=== PATIENT | female | born 1995 | race Two or more races ===

== ENCOUNTER 2022-05-03 12:57 | Outpatient (CLI) | payer OTHER | END 2022-05-03 13:03 | disposition home or self-care (01) | LOC: RAD 12:57 | PROVIDERS: ATTEND Internal Medicine | DX: I10 Essential (primary) hypertension (principal); M54.50 Low back pain, unspecified; Z01.810 Encounter for preprocedural cardiovascular examination; E03.9 Hypothyroidism, unspecified; E78.9 Disorder of lipoprotein metabolism, unspecified; D55.9 Anemia due to enzyme disorder, unspecified; E11.51 Type 2 diabetes mellitus with diabetic peripheral angiopathy without gangrene; E11.9 Type 2 diabetes mellitus without complications; E66.8 Other obesity; G62.9 Polyneuropathy, unspecified ==

== ENCOUNTER 2022-09-14 16:35 | Outpatient (CLI) | payer OTHER | END 2022-09-14 16:52 | disposition home or self-care (01) | LOC: TOM 16:35 | PROVIDERS: ATTEND Internal Medicine | DX: I10 Essential (primary) hypertension (principal); M54.50 Low back pain, unspecified; R51.9 Headache, unspecified ==

== ENCOUNTER 2023-05-26 14:13 | Emergency (ER) | payer OTHER ==
[~2023-05-26] VITALS: Ht 157.5 cm; Wt 83.9 kg
[2023-05-26 19:02] LABS: HEMOGLOBIN 11.9 g/dL (12.0-15.00); MEAN CORPUSCULAR HEMOGLOBIN 19.4 pg (27.00-32.0); MEAN CORPUSCULAR HGB CONC 32.1 g/dl (32.0-36.0); PLATELET COUNT 304 K/uL (150-450); RED BLOOD COUNT 6.11 M/uL (4.00-6.00); RED CELL DISTRIBUTION WIDTH 16.4 % (11.5-14.5)
[2023-05-26 19:04] LABS: MEAN CELL VOLUME 60.6 fL (80.00-100.00)
[2023-05-26 19:07] LABS: URINE APPEARANCE Clear; URINE BILIRRUBIN Negative (NEGATIVE); URINE BLOOD Negative; URINE COLOR Yellow; URINE GLUCOSE Negative (NEGATIVE); URINE LEUKOCYTE Negative; URINE NITRATE Negative; URINE PROTEIN Trace (NEGATIVE)
[2023-05-26 19:11] LABS: URINE BACTERIA 148.6 uL (0.0-1933); URINE RBC 9.4 uL (0.0-20.8); URINE WBC 3.2 uL (0.0-23.2)
[2023-05-26 19:32] LABS: ANION GAP 8 (10.0-20.0); BLOOD UREA NITROGEN 10 mg/dL (7-18); BUN CREA RATIO 17 (7.0-25.0); CALCIUM 9.4 mg/dL (8.5-10.1); CARBON DIOXIDE 27 mEq/L (21-32); CHLORIDE 106 mmol/L (98-107); GFR 119.04; GLUCOSE FASTING 113 mg/dL (65-100); OSMOLALITY SERUM 274 MOSM/KG (275-295); POTASSIUM 3.74 mEq/L (3.5-5.1); SODIUM 137 mmol/L (136-145)
[2023-05-26 19:37] LABS: HCG QUANTITATIVE < 1 mUI/mL (1-3)
== END 2023-05-26 22:19 | disposition home or self-care (01) ==
LOC: ER 14:13
PROVIDERS: General Practice
DX: R10.2 Pelvic and perineal pain (principal)

== ENCOUNTER 2023-07-01 16:51 | Emergency (ER) | payer OTHER ==
[~2023-07-01] VITALS: Ht 157.5 cm; Wt 68.0 kg
[2023-07-01 17:50] LABS: HEMATOCRIT 36.3 % (36.0-45.00); HEMOGLOBIN 11.3 g/dL (12.0-15.00); MEAN CORPUSCULAR HEMOGLOBIN 19.2 pg (27.00-32.0); MEAN CORPUSCULAR HGB CONC 31.1 g/dl (32.0-36.0); PLATELET COUNT 282 K/uL (150-450); RED BLOOD COUNT 5.87 M/uL (4.00-6.00); RED CELL DISTRIBUTION WIDTH 16.1 % (11.5-14.5)
[2023-07-01 18:21] LABS: MEAN CELL VOLUME 61.7 fL (80.00-100.00)
== END 2023-07-01 19:44 | disposition home or self-care (01) ==
LOC: ER 16:52
PROVIDERS: General Practice
DX: D17.1 Benign lipomatous neoplasm of skin and subcutaneous tissue of trunk (principal)

== ENCOUNTER → 2023-09-19 | Emergency (ER) | payer OTHER ==
[~2023-09-19] VITALS: Ht 157.5 cm; Wt 74.8 kg
== END | disposition left against medical advice (07) ==
LOC: ER 20:49
DX: Z53.21 Procedure and treatment not carried out due to patient leaving prior to being seen by health care provider (principal)

== ENCOUNTER 2025-05-31 19:43 | Emergency (ER) | payer OTHER ==
[~2025-05-31] VITALS: Ht 157.5 cm; Wt 73.5 kg
[2025-05-31 20:32] VITALS: BP 143/88; O2SAT 96
[2025-05-31] MEDS ORDERED: 0.9 % SODIUM CHLORIDE 1,000 ML IV ONE (21:00)
[2025-05-31 22:07] LABS: BASO % 0.3 % (0.1-1.2); EOS # 0.12 (0.04-0.54); EOS % 1.1 % (0.7-7.0); LYMPH # 3.12 (1.18-3.74); LYMPH % 27.4 % (19.3-53.1); MEAN PLATELET VOLUME 10.10 fl (9.4-12.4); MONO # 0.61 (0.24-0.82); MONO % 5.4 % (4.7-12.5); NEUT # 7.47 (1.56-6.13); NEUT % 65.6 % (34.0-71.1); RED CELL DISTRIBUTION WIDTH 15.4 % (11.6-14.4)
[2025-05-31 22:23] LABS: ALT/SGPT 23 U/L (12-78); AST/SGOT 13 U/L (15-37); BILIRUBIN TOTAL 0.26 mg/dL (0.3-1.2); BUN CREA RATIO 20 (7.0-25.0); CREATININE SERUM 0.55 mg/dL (0.55-1.02); GFR 129.78; GLOBULINA 4.4 G/DL (2.4-3.5); GLUCOSE FASTING 106 mg/dL (65-100); OSMOLALITY SERUM 277 MOSM/KG (275-295)
[2025-05-31 22:28] LABS: HCG QUANTITATIVE < 1 mUI/mL (1-3)
[2025-06-01] MEDS ORDERED: CEFTRIAXONE SODIUM 1,000 MG VIAL IV ONE (00:45)
[2025-06-01] MEDS ORDERED: PEPCID AC20 MG PO (01:12)
[2025-06-01] MEDS ORDERED: ZITHROMAX500 MG PO (01:12)
[2025-06-01] MEDS ORDERED: MEDROLPACK PO (01:12)
[2025-06-01] MEDS ORDERED: CEFTRIAXONE SODIUM 1,000 MG VIAL ONE (01:17)
== END 2025-06-01 02:52 | disposition home or self-care (01) ==
LOC: ER 19:44
PROVIDERS: General Practice
DX: M54.2 Cervicalgia (principal); R59.9 Enlarged lymph nodes, unspecified
CPT/HCPCS: 36415; 70491; Q9965